=== PATIENT | female | born 1940 | race Caucasian/White ===

== ENCOUNTER → 2025-08-30 09:44 | Outpatient (REF) | payer MEDICARE, SELFPAY | LOC: PAVMRI 09:44 | PROVIDERS: ATTENDING PHYSICIAN Nurse Practitioner Family; REFERRING PHYSICIAN Internal Medicine Rheumatology | DX: M51.369 Other intervertebral disc degeneration, lumbar region without mention of lumbar back pain or lower extremity pain (principal) | CPT/HCPCS: 72148 ==

== ENCOUNTER → 2025-11-02 16:50 | Outpatient (REF) | payer MEDICARE, OTHER, SELFPAY | LOC: RAD 16:50 | PROVIDERS: ATTENDING PHYSICIAN Podiatrist Foot & Ankle Surgery; FAMILY PHYSICIAN Nurse Practitioner Family | DX: M84.375A Stress fracture, left foot, initial encounter for fracture (principal) | CPT/HCPCS: 73630 ==